=== PATIENT | female | born 1995 | race African-American/Black ===

== ENCOUNTER 2016-07-27 12:20 | Emergency (ER) | payer MEDICAID, OTHER ==
[~2016-07-27] VITALS: Ht 162.6 cm; Wt 50.8 kg
[~2016-07-27 12:20] MED LIST: DEBROX15 M1 RIGHT EAR; IBUPROFEN600 MG ORAL; inhaler
[2016-07-27] MEDS ORDERED: NKM (12:29)
--- NOTE | 2016-07-27 12:40 | Emergency Room Report ---
History of Present Illness General Chief Complaint: General Complaint Source: Patient Present Illness HPI 21-year-old female presents emergency department complaining of intermittent burning epigastric abdominal pain in addition to nausea and decreased appetite x3 days. Patient denies vomiting denies constipation, diarrhea blood in the stool or dark tarry stools. Patient denies travel or ill contacts. Patient's issues been having difficulty gaining weight times one year. She states she feels that she is overly thin. Patient denies family history or personal history of thyroid disorder. Patient states she has not seen her PCP in over a year. Patient denies night sweats, fatigue, lymphadenopathy. Patient denies dysuria, hematuria she reports increased frequency. She denies abdominal tenderness she reports her intermittent abdominal pain as burning sensation and rates it as 7/10 in severity. Denies CP, Palpitations, LOC, AMS, dizziness, Changes in Vision, Sensation, paresthesias, or a sudden severe headache. Allergies: Coded Allergies: ASPIRIN (Verified Allergy, Unknown, 06/12/15) Patient History Past Medical History: see triage record Past Surgical History: none Pertinent Family History: none Last Menstrual Period: 07/20/2016 : 0 Para: 0 Reviewed Nursing Documentation: PMH: Agreed, PSxH: Agreed Nursing Documentation-PMH Hx Pacemaker: Yes Hx Asthma: Yes Review of Systems All Other Systems: negative except mentioned in HPI Physical Exam Vital Signs Date Time Temp Pulse Resp B/P Pulse Ox O2 Delivery O2 Flow Rate FiO2 07/27/16 12:23 98.1 103 16 108/70 100 Room Air Sp02 EP Interpretation: reviewed, normal General Appearance: no apparent distress, alert, GCS 15, non-toxic, thin Head: normocephalic, atraumatic Eyes: bilateral eye PERRL, bilateral eye normal inspection ENT: hearing grossly normal, normal pharynx, no angioedema, normal voice Neck: full range of motion, thyroid normal, no meningismus, no bony tend, supple/symm/no masses Respiratory: chest non-tender, lungs clear, normal breath sounds, speaking full sentences Cardiovascular #1: regular rate, rhythm, no edema Gastrointestinal: normal bowel sounds, non tender, soft, no guarding, no rebound, other - negative macburny's Rectal: deferred Genitourinary: normal inspection, no CVA tenderness Musculoskeletal: back normal, gait/station normal, normal range of motion, non- tender Neurologic: alert, oriented x3, responsive, motor strength/tone normal, sensory intact Psychiatric: judgement/insight normal, memory normal, mood/affect normal Skin: normal color, no rash, warm/dry, well hydrated Medical Decision Making PA Attestation Dr. Lai is my supervising Physician whom patient management has been discussed with. Diagnostic Impression: Primary Impression: Gastritis Qualified Codes: K29.70 - Gastritis, unspecified, without bleeding ER Course 21-year-old female presents emergency department complaining of intermittent burning epigastric abdominal pain in addition to nausea and decreased appetite x3 days. Patient denies vomiting denies constipation, diarrhea blood in the stool or dark tarry stools. Patient denies travel or ill contacts. Patient's issues been having difficulty gaining weight times one year. She states she feels that she is overly thin. Patient denies family history or personal history of thyroid disorder. Patient states she has not seen her PCP in over a year. Patient denies night sweats, fatigue, lymphadenopathy. Patient denies dysuria, hematuria she reports increased frequency. She denies abdominal tenderness she reports her intermittent abdominal pain as burning sensation and rates it as 7/10 in severity. Ddx considered but are not limited to GE, colitis, acute appendicitis, SBO, UTI , Vital signs: pt. is afebrile. H&PE are most consistent with GE- benign abdominal exam, acute appendicitis unlikely given presentation. ORDERS: -UA: unremarkable, rbc's , no evidence of infection - Urine HCG: Negative ED INTERVENTIONS: -Zofran PO - Mylanta PO - pt. re-evaluation, pt states her symptoms have subsided. d/w pt. to follow up with pcp regarding inability to gain weight, recommended thyroid function evaluation. d/w pt that I do not suspect an emergent condition at this time, however if she has worsening or new symptoms to return promptly to the ED. DISCHARGE: At this time pt. is stable for d/c to home. Will provide printed patient care instructions, and any necessary prescriptions. Care plan and follow up instructions have been discussed with the patient prior to discharge. Labs Test 07/27/16 12:50 Urine Color Pale yellow Urine Appearance Slightly cloudy Urine pH 5 (4.5-8.0) Urine Specific [place] 1.020 (1.005-1.035) Urine Protein Negative (NEGATIVE) Urine Glucose (UA) Negative (NEGATIVE) Urine Ketones 3+ (NEGATIVE) Urine Occult Blood 4+ (NEGATIVE) Urine Nitrite Negative (NEGATIVE) Urine Bilirubin Negative (NEGATIVE) Urine Urobilinogen Normal MG/DL (0.0-1.0) Urine Leukocyte Esterase Negative (NEGATIVE) Urine RBC 10-15 /HPF (0 - 2) Urine WBC 2-4 /HPF (0 - 2) Urine Squamous Epithelial Cells Moderate /LPF (NONE/OCC) Urine Bacteria Few /HPF (NONE) Urine HCG, Qualitative Negative Last Vital Signs Date Time Temp Pulse Resp B/P Pulse Ox O2 Delivery O2 Flow Rate FiO2 07/27/16 12:23 98.1 103 16 108/70 100 Room Air Disposition: HOME, SELF-CARE Condition: Stable Scripts Ranitidine Hcl* (ZANTAC*) 150 Mg Tablet 150 MG ORAL DAILY for 30 Days, #30 TAB 0 Refills Prov: Sophia Vance 07/27/16 Ondansetron Odt* (ZOFRAN ODT*) 4 Mg Tab.rapdis 4 MG ORAL Q6H Y for Nausea & Vomiting, #20 TAB Prov: Sophia Vance 07/27/16 Patient Instructions: Gastritis, Adult, [id number] Additional Instructions: Take medications as directed. Follow up with PCP in 3-5 days, recommend thyroid testing for continued weight loss. Return sooner to ED if new symptoms occur, or current symptoms become worse. - Please note that this Emergency Department Report was dictated using [employer] maker technology software, occasionally this can lead to erroneous entry secondary to interpretation by the dictation equipment. Sophia Vance July 27, 2016 12:40
[2016-07-27 13:24] LABS: APPEARANCE,URINE SLIGHTLY CLOUDY; KETONES,URINE 3+ (NEGATIVE); LEUKOCYTE ESTERASE ,URINE NEGATIVE (NEGATIVE); NITRITE,URINE NEGATIVE (NEGATIVE); PH,URINE 5 (4.5-8.0); PROTEIN,URINE NEGATIVE (NEGATIVE); UROBILINOGEN,URINE NORMAL MG/DL (0.0-1.0)
[2016-07-27 13:30] VITALS: BP 110/70
[2016-07-27 13:34] LABS: BACTERIA,URINE FEW /HPF; SQUAMOUS EPITHELIAL CELL,UR MODERATE /LPF (NONE/OCC)
[2016-07-27] MEDS ORDERED: ZANTAC150 MG ORAL (13:53)
[2016-07-27] MEDS ORDERED: ZOFRAN ODT4 MG ORAL (13:53)
[2016-07-27 14:03] VITALS: BP 110/70
== END 2016-07-27 14:00 | disposition home or self-care (01) ==
LOC: EMR 12:57
DX: K29.70 Gastritis, unspecified, without bleeding (principal); J45.909 Unspecified asthma, uncomplicated; Z95.0 Presence of cardiac pacemaker; Z88.6 Allergy status to analgesic agent
CPT/HCPCS: 81003; 81025; 99284

== ENCOUNTER 2017-11-15 05:23 | Emergency (ER) | payer MEDICAID ==
[~2017-11-15] VITALS: Ht 162.6 cm; Wt 53.5 kg
[~2017-11-15 05:23] MED LIST changes: +NKM; +ZANTAC150 MG ORAL; +ZOFRAN ODT4 MG ORAL
--- NOTE | 2017-11-15 05:37 | Emergency Room Report ---
History of Present Illness General Chief Complaint: To Be Triaged Source: Patient (RONALDO VAZQUEZ M.D.) Present Illness HPI This is a 22-year-old female with history of asthma. She presents with chief point of epigastric pain and chest pain. She woke up with the pain. Pain is epigastric going to her back. Sharp in nature. She felt like she can't breathe. She took breathing treatment is not helping. Nauseous but no vomiting. No diarrhea. Never had this problem before. (RONALDO VAZQUEZ M.D.) Allergies: Coded Allergies: ASPIRIN (Verified Allergy, Unknown, 06/12/15) Patient History Past Medical History: see triage record, old chart reviewed, asthma Past Surgical History: none Pertinent Family History: none Social History: Denies: smoking Now: No Immunizations: other Reviewed Nursing Documentation: PMH: Agreed; PSxH: Agreed (RONALDO VAZQUEZ M.D.) Nursing Documentation-PMH Hx Pacemaker: Yes Hx Asthma: Yes (RONALDO VAZQUEZ M.D.) Review of Systems Eye: Denies: eye pain, blurred vision ENT: Denies: ear pain, nose congestion, throat swelling Respiratory: Denies: cough, shortness of breath Cardiovascular: Denies: chest pain, palpitations Gastrointestinal: Reports: abdominal pain; Denies: diarrhea, nausea, vomiting Musculoskeletal: Denies: back pain, joint pain Skin: Denies: rash Neurological: Denies: headache, numbness Endocrine: Denies: increased thirst, increased urine Hematologic/Lymphatic: Denies: easy bruising All Other Systems: negative except mentioned in HPI (RONALDO VAZQUEZ M.D.) Physical Exam Sp02 EP Interpretation: reviewed, normal General Appearance: well appearing, no apparent distress, alert Head: normocephalic, atraumatic Eyes: bilateral eye PERRL, bilateral eye EOMI ENT: hearing grossly normal, normal pharynx Neck: full range of motion, supple, no meningismus Respiratory: chest non-tender, lungs clear, normal breath sounds Cardiovascular #1: regular rate, rhythm, no murmur Gastrointestinal: normal bowel sounds, no mass, no organomegaly, no bruit, non- distended, tenderness - mild epigastric Musculoskeletal: back normal, gait/station normal, normal range of motion Psychiatric: mood/affect normal Skin: warm/dry (RONALDO VAZQUEZ M.D.) Medical Decision Making Diagnostic Impression: Primary Impression: Abdominal pain Qualified Codes: R10.13 - Epigastric pain ER Course Patient with abdominal pain. Differential include reflux, gastritis, ulcer, gallbladder disease to name a few. Labs and urine pending. As is CT. I will sign this patient out to Dr. Lai for final disposition. (RONALDO VAZQUEZ M.D.) ER Course Please refer to the initial note for the history exam and presentation On repeat discussion patient's discomfort appears to be specifically localized to the epigastric and mildly upper quadrant area with some radiation towards the back At this time remains comfortable awake alert repeat abdominal exam is soft and benign CT imaging does not fully evaluate the appendix however there is no obvious secondary findings and the patient's exam does not clinically require repeat imaging Blood work as well at baseline levels Given the resolution and the repeat examination patient stable for initial conservative outpatient trial Labs Test 11/15/17 05:45 White Blood Count 6.6 K/UL (4.8-10.8) Red Blood Count 4.36 M/UL (4.20-5.40) Hemoglobin 13.9 G/DL (12.0-16.0) Hematocrit 39.7 % (37.0-47.0) Mean Corpuscular Volume 91 FL (80-99) Mean Corpuscular Hemoglobin 31.9 PG (27.0-31.0) Mean Corpuscular Hemoglobin Concent 35.0 G/DL (32.0-36.0) Red Cell Distribution Width 11.2 % (11.6-14.8) Platelet Count 240 K/UL (150-450) Mean Platelet Volume 7.9 FL (6.5-10.1) Neutrophils (%) (Auto) 58.0 % (45.0-75.0) Lymphocytes (%) (Auto) 32.3 % (20.0-45.0) Monocytes (%) (Auto) 5.2 % (1.0-10.0) Eosinophils (%) (Auto) 2.9 % (0.0-3.0) Basophils (%) (Auto) 1.5 % (0.0-2.0) Urine Color Yellow Urine Appearance Clear Urine pH 5 (4.5-8.0) Urine Specific [place] 1.025 (1.005-1.035) Urine Protein Negative (NEGATIVE) Urine Glucose (UA) Negative (NEGATIVE) Urine Ketones Negative (NEGATIVE) Urine Blood 2+ (NEGATIVE) Urine Nitrite Negative (NEGATIVE) Urine Bilirubin Negative (NEGATIVE) Urine Urobilinogen Normal MG/DL (0.0-1.0) Urine Leukocyte Esterase Negative (NEGATIVE) Urine RBC 0-2 /HPF (0 - 2) Urine WBC 0 /HPF (0 - 2) Urine Squamous Epithelial Cells Few /LPF (NONE/OCC) Urine Bacteria None /HPF (NONE) Urine Mucus Moderate /LPF (NONE/OCC) Urine HCG, Qualitative Negative (NEGATIVE) Sodium Level 139 MMOL/L (136-145) Potassium Level 3.1 MMOL/L (3.5-5.1) Chloride Level 104 MMOL/L (98-107) Carbon Dioxide Level 27 MMOL/L (21-32) Anion Gap 8 mmol/L (5-15) Blood Urea Nitrogen 15 mg/dL (7-18) Creatinine 0.7 MG/DL (0.55-1.30) Estimat Glomerular Filtration Rate > 60 mL/min (>60) Glucose Level 94 MG/DL (74-106) Calcium Level 9.4 MG/DL (8.5-10.1) Total Bilirubin 0.8 MG/DL (0.2-1.0) Aspartate Amino Transf (AST/SGOT) 18 U/L (15-37) Alanine Aminotransferase (ALT/SGPT) 20 U/L (12-78) Alkaline Phosphatase 62 U/L (46-116) Total Protein 8.1 G/DL (6.4-8.2) Albumin 4.1 G/DL (3.4-5.0) Globulin 4.0 g/dL Albumin/Globulin Ratio 1.0 (1.0-2.7) Lipase 96 U/L (73-393) (Kannanehdor,Ali DO) CT/MRI/US Diagnostic Results CT/MRI/US Diagnostic Results : Impression CT abdomen pelvisIMPRESSION: Nonspecific bowel gas pattern with mild to moderate retained stool. Appendix not well-visualized. No obvious secondary signs for appendicitis although limited due to paucity of intra-abdominal fat and absent oral contrast. As indicated, consider repeat imaging after oral contrast administration. Probable adnexal cysts versus follicles. Finding in the uterus, nonspecific. Follow-up pelvic sonogram as indicated. Nonspecific free fluid in the pelvis. (Kayce Lai DO) Status: improved (RONALDO VAZQUEZ M.D.) Status: improved (Kayce Lai DO) Disposition: HOME, SELF-CARE Condition: Improved Additional Instructions: Patient is provided with the discharge instructions notified to follow up with primary doctor in the next 2-3 days otherwise return to the er with any worsening symptoms. Please note that this report is being documented using [employer] technology. This can lead to erroneous entry secondary to incorrect interpretation by the dictating instrument. RONALDO VAZQUEZ M.D. Nov 15, 2017 05:37 Kayce Lai DO Nov 15, 2017 07:42
[2017-11-15] MEDS ORDERED: Pantoprazole Inj IVP ONE (05:45)
[2017-11-15] MEDS ORDERED: Morphine Sulfate 4mg/ml Inj (IV USE ONLY) IVP ONE (05:45)
[2017-11-15] MEDS ORDERED: Mylanta II UD 30ml ORAL ONE (05:45)
[2017-11-15] MEDS ORDERED: Isovue-300 100ml vial INJ PRN (05:45)
[2017-11-15 05:50] VITALS: BP 117/64
[2017-11-15 06:11] LABS: BASOPHILS % (AUTO) 1.5 % (0.0-2.0); EOSINOPHILS % (AUTO) 2.9 % (0.0-3.0); HEMATOCRIT 39.7 % (37.0-47.0); HEMOGLOBIN 13.9 G/DL (12.0-16.0); LYMPHOCYTES % (AUTO) 32.3 % (20.0-45.0); MEAN CORPUSCULAR VOLUME 91 FL (80-99); MONOCYTES % (AUTO) 5.2 % (1.0-10.0); PLATELET COUNT 240 K/UL (150-450); RED BLOOD COUNT 4.36 M/UL (4.20-5.40); RED CELL DISTRIBUTION WIDTH 11.2 % (11.6-14.8); WHITE BLOOD COUNT 6.6 K/UL (4.8-10.8)
[2017-11-15 06:15] LABS: ANION GAP 8 mmol/L (5-15); BLOOD UREA NITROGEN 15 mg/dL (7-18); CALCIUM 9.4 MG/DL (8.5-10.1); CARBON DIOXIDE 27 MMOL/L (21-32); CHLORIDE 104 MMOL/L (98-107); CREATININE 0.7 MG/DL (0.55-1.30); POTASSIUM 3.1 MMOL/L (3.5-5.1); SODIUM 139 MMOL/L (136-145)
[2017-11-15 06:20] LABS: ALANINE AMINOTRANSFERASE 20 U/L (12-78); ALBUMIN 4.1 G/DL (3.4-5.0); ALKALINE PHOSPHATASE 62 U/L (46-116); APPEARANCE,URINE CLEAR; ASPARTATE AMINO TRANSFERASE 18 U/L (15-37); BILIRUBIN, URINE NEGATIVE (NEGATIVE); BILIRUBIN,TOTAL 0.8 MG/DL (0.2-1.0); GLUCOSE, URINE (UA) NEGATIVE (NEGATIVE); KETONES,URINE NEGATIVE (NEGATIVE); LEUKOCYTE ESTERASE ,URINE NEGATIVE (NEGATIVE); NITRITE,URINE NEGATIVE (NEGATIVE); PH,URINE 5 (4.5-8.0); PROTEIN,URINE NEGATIVE (NEGATIVE); UROBILINOGEN,URINE NORMAL MG/DL (0.0-1.0)
[2017-11-15 06:25] LABS: COLOR,URINE YELLOW
--- NOTE | 2017-11-15 07:25 | Diagnostic Imaging Report ---
EXAM: CT Abdomen and Pelvis With Intravenous Contrast CLINICAL HISTORY: ABD PAIN TECHNIQUE: Axial computed tomography images of the abdomen and pelvis with intravenous contrast. CTDI is 11.14 mGy and DLP is 512 mGy-cm. One or more of the following dose reduction techniques were used: automated exposure control, adjustment of the mA and/or kV according to patient size, use of iterative reconstruction technique. COMPARISON: No relevant prior studies available. FINDINGS: Lung bases: Unremarkable. No mass. No consolidation. ABDOMEN: Liver: Unremarkable. No mass. Gallbladder and bile ducts: Unremarkable. No calcified stones. No ductal dilation. Pancreas: Slight prominence of the pancreatic duct, nonspecific. Spleen: Unremarkable. No splenomegaly. Adrenals: Unremarkable. No mass. Kidneys and ureters: No renal calcification or hydronephrosis. Stomach and bowel: Nonspecific bowel gas pattern with moderate retained stool. No obstruction. No mucosal thickening. PELVIS: Appendix: Appendix not well-visualized. As indicated, consider repeat imaging after oral contrast for better visualization. Bladder: Unremarkable. No mass. Reproductive: Prominent follicles versus adnexal cysts, probably benign. Retroverted uterus with central low density, nonspecific on CT. Follow-up pelvic sonogram for better visualization as indicated. ABDOMEN and PELVIS: Intraperitoneal space: Small to moderate free fluid in the pelvis, nonspecific. No free air Bones/joints: No acute fracture. No dislocation. Soft tissues: Absent or contrast and paucity of intra-abdominal fat limits evaluation. Vasculature: Unremarkable. No abdominal aortic aneurysm. Lymph nodes: Unremarkable. No enlarged lymph nodes. IMPRESSION: Nonspecific bowel gas pattern with mild to moderate retained stool. Appendix not well-visualized. No obvious secondary signs for appendicitis although limited due to paucity of intra-abdominal fat and absent oral contrast. As indicated, consider repeat imaging after oral contrast administration. Probable adnexal cysts versus follicles. Finding in the uterus, nonspecific. Follow-up pelvic sonogram as indicated. Nonspecific free fluid in the pelvis.
[2017-11-15] MEDS ORDERED: PEPCID AC20 M2 PO (07:43)
[2017-11-15 07:51] VITALS: BP 106/43
== END 2017-11-15 07:51 | disposition home or self-care (01) ==
LOC: EMR 06:09
DX: R10.13 Epigastric pain (principal); R07.9 Chest pain, unspecified; J45.998 Other asthma; Z95.0 Presence of cardiac pacemaker
CPT/HCPCS: 36415; 74177; 80053; 81003; 81025; 83690; 85025; 96361; 96374; 96375; 99284; C9113; J2270; J2405; Q9967